=== PATIENT | female | born 1960 | race Caucasian/White ===

== ENCOUNTER 2022-03-24 07:51 | Day surgery (SDC) | payer OTHER, SELFPAY ==
[2022-03-24] VITALS (8 sets, daily range): BP systolic 88–154; BP diastolic 56–93; PULSE 57–76; RESP 16; TEMP 36.2–36.7; O2SAT 95–99; BMI 27.7
--- NOTE | 2022-03-24 | IMM_PTH ---
PATIENT: YULIANA ARREDONDO LOC: EN U#:[id number] AGE/SX: 61/F ROOM: RE03/24/[address]: Dr. Sean Rodriguez MD : 1960 BED: DIS: 03/24/2022 SPEC #: [id number] RECD: 03/24/22 13:07 STATUS: BAKARI ANICETO #: [id number] MANUEL: 03/24/22 00:[address]: Sean Rodriguez DEPT: IMMUNOHISTOCHEMISTRY RECD BY: Brigitte Chambers ENTERED: 03/24/22 13:07 SP TYPE: IMMUNO OTHR DR: GURERERO Pitt Tissues: COLON BIOPSY Procedures: H Pylori (initial) PHYSICIAN & INSTITUTION [place] [id number] SPECIMEN INFORMATION: Tissue Source: A. Antrum biopsy Clinical Info: Positive colorectal cancer screening Specimen Number: [id number] CPT code: 42342 METHODOLOGY: Deparaffinized sections of prefer/formalin-fixed tissue or PAP/DQ stained slides are incubated with monoclonal/polyclonal antibodies/oligonucleotide probes. Localization is made via biotin free immunoperoxidase method. Appropriate controls are performed and reacted as expected. Results on target cell population are indicated in the following table: RESULTS: ANTIBODY / CLONE RESULT Block A H Pylori (polyclonal) positive These tests were developed and their performance characteristics determined by [facility]. They may not have been cleared or approved by the U.S. Food and Drug Administration. The FDA has determined that such clearance or approval is not necessary. The above immunohistochemical/dualISH markers are ordered and reviewed by the Pathologist. INTERPRETATION: A. Antrum, biopsy: Positive for Helicobacter pylori organisms. SJ:juli 03/28/2022
--- NOTE | 2022-03-24 08:12 | PCM.HP.BLA ---
History and Physical Date of Admission: 03/24/22 Visit Reasons:?COLONOSCOPY Chief Complaint: c-scope Paint Supervisor Required: No Is patient in pain?: No Allergies No Known Allergies Allergy (Unverified 03/03/22 08:14) PFSH Surgical History?(Updated 03/03/22 @ 08:10 by Viviana Jefferson) S/P S/P hysterectomy Family History?(Updated 03/03/22 @ 08:10 by Viviana Jefferson) Mother Breast cancerGrandfather Heart disease Social History Smoking Status:? Never smoker alcohol intake:? current HPI HPI HPI: YULIANA ARREDONDO, is a 61 F who presents to the office today for surgical consultation regarding colonoscopy.? The patient is being referred by Christina Pascal PA-C and a written copy of my surgical consult recommendations will return to her.? The patient has had a positive result from a screening Cologuard test I will February 06, 2022.? She has not had a previous colonoscopy.? As of August 18, 2021 BUN was 17 and creatinine 0.73.? Liver function tests were normal.? I do not have a CBC from that time.? Ela good health.? She is not on any chronic medications.? No bright red blood per rectum or melena.? Family history is negative for colon polyps or colon cancer.? She does not take antacids either.? She has not noticed any epigastric pain ROS General General: No weight change, appetite, fatigue, colon cancer, breast cancer or weakness HEENT HEENT: No difficulty swallowing, eye injury, eye surgery, swollen glands or hoarseness Endo Endocrine: No thyroid disease, diabetes mellitus, thyroid cancer, Hair loss, heat intolerance or cold intolerance Skin Skin: No rash or changing moles Breast Breast: No left breast lump, right breast lump, nipple discharge, breast pain, abnormal mammogram, abnormal US or breast enlargement Musc Musculoskeletal: No back problems, arthritis, rheumatoid arthritis, gout or joint pain Cardio Cardiovascular: No murmur, pacemaker, heart disease, atrial fibrillation, high blood pressure, heart attack, heart stent, palpitations, shortness of breat with exertion or chest pain Psych Psychiatric: No depression, anxiety or hearing voices Resp Respiratory: No shortness of breath, No sleep apnea, No cough, No COPD, No asthma, No emphysema and No wheezing Gastro Gastrointestinal: No abdominal pain, No nausea or vomiting, No diarrhea, No constipation, Yes blood in stool, No acid reflux, No hemorrhoids, No ulcers, No gallbladder problem and No black,tarry stools Lopez Hematologic: No blood thinners, No blood disorders, No bleeding, No anemia and No blood clots Neuro Neurologic: No system reviewed and no additional complaints, except as documented, No as per HPI, No abnormal gait, No abnormal hearing, No abnormal movements, No abnormal speech, No behavioral changes, No burning sensations, No confusion, No convulsions, No disequilibrium, No dizziness, No localized weakness, No frequent falls, No headache(s), No lack of coordination, No loss of vision, No memory loss, No numbness, No other visual disturbances, No radicular pain, No restless legs, No sensory deficit, No syncope, No tingling, No tremor(s), No weakness and No other Exam Const General: cooperative, healthy appearing and comfortable [facility] Head: normal to inspection Eyes General: appearance normal, both eyes and all related structures Neck Neck: normal visual inspection Resp Effort & Inspection: normal respiratory effort Auscultation: clear to auscultation bilaterally Cardio Rate: regular rate Rhythm: regular rhythm Musc Cervical Spine: normal cervical lordosis Skin General: no rashes or lesions noted Neuro General: patient alert and patient awake Extrem General: no calf tenderness Psych Appearance: grossly normal Assessment and Plan Assessment and Plan (1) Positive colorectal cancer screening using Cologuard test: ?Status:?Acute ?Plan: I recommended the patient to combine a esophagogastroduodenoscopy with possible biopsy and colonoscopy with possible biopsy or polypectomy.? Patient is aware of the technique, benefit, risk, alternatives.? She has had an opportunity ask and have questions answered.? We will schedule proceed as noted. Copy: IDA Foster M.D., F.A.C.S. I have re-examined the patient. There are no clinical changes since date of exam. Sean Rodriguez M.D., F.A.C.S.
[2022-03-24] MEDS: Lactated Ringers 1,000 ML 15 ML IV (08:17)
--- NOTE | 2022-03-24 08:45 | EGD_PTH ---
PATIENT: YULIANA ARREDONDO LOC: EN U#:[id number] AGE/SX: 61/F ROOM: RE03/24/[address]: Dr. Sean Rodriguez MD : 1960 BED: DIS: 03/24/2022 SPEC #: [id number] RECD: 03/24/22 11:02 STATUS: BAKARI OLIVERAce #: [id number] MANUEL: 03/24/22 08:[address]: Sean Rodriguez DEPT: SURGICAL PATHOLOGY RECD BY: Otilia Conrad ENTERED: 03/24/22 12:10 SP TYPE: EGD BIOPSY OTHR DR: GUERRERO Pitt Tissues: A - Gastric mucous membrane B - Esophagus, NOS Procedures: Special Stain Group II Surgery Specimen Level IV Alcian Blue/PAS (control) HEADER OPERATION: [place] [place] PRE-OP DIAGNOSIS: Positive colorectal cancer screening TISSUE SUBMITTED: A - Antrum biopsy for H. pylori and path, B - Distal esophagus MICROSCOPIC DIAGNOSIS A. Antrum, biopsy: Moderate gastritis. See microscopic description and comment. B. Distal esophagus, biopsy: A fragment of gastroesophageal mucosa with mild chronic inflammation. Intestinal metaplasia (goblet cell metaplasia) not identified. See comment. SJ:juli 03/27/2022 COMMENT A. The results of immunohistochemistry for Helicobacter pylori will be reported separately ([id number]). Alcian blue/PAS stain with matched control is used in the evaluation of the specimen. B. Alcian blue/PAS stain with matched control is used in the evaluation of the specimen. The specimen predominantly consists of squamous mucosa. MICROSCOPIC DESCRIPTION Slides are reviewed. A. The specimen shows fragments of gastric mucosa with chronic inflammatory cell infiltrates in the lamina propria consisting of lymphocytes and plasma cells, consistent with moderate chronic gastritis. Focal intestinal metaplasia (goblet cell metaplasia) is also noted. GROSS DESCRIPTION A - Received in fixative is one container labeled with the patient's name and designated antrum biopsy. The specimen consists of one irregular fragment of light contreras soft tissue that measures 0.3 x 0.3 x 0.1 cm. The specimen is totally submitted in one cassette. B - Received in fixative is one container labeled with the patient's name and designated distal esophagus biopsy. The specimen consists of one irregular fragment of light contreras soft tissue that measures 0.8 x 0.3 x 0.1 cm. The specimen is totally submitted in one cassette. / SJ:rg 03/24/2022 TC:3 CPT: 19886 x2, 11737 x2
--- NOTE | 2022-03-24 09:39 | OP.EGD_ITS ---
Patient Name: Snow Silva Procedure Date: 03/24/2022 8:57 AM Date of : 1960 Age: 61 Procedure: Upper GI endoscopy Indications: Cologuard positive Providers: Sean Rodriguez MD Medicines: See the Anesthesia note for documentation of the administered medications Complications: No immediate complications. Procedure: Pre-Anesthesia Assessment: - Prior to the procedure, a History and Physical was performed, and patient medications and allergies were reviewed. The patient's tolerance of previous anesthesia was also reviewed. The risks and benefits of the procedure and the sedation options and risks were discussed with the patient. All questions were answered, and informed consent was obtained. Prior Anticoagulants: The patient has taken no previous anticoagulant or antiplatelet agents. ASA Grade Assessment: II - A patient with mild systemic disease. After reviewing the risks and benefits, the patient was deemed in satisfactory condition to undergo the procedure. After obtaining informed consent, the endoscope was passed under direct vision. Throughout the procedure, the patient's blood pressure, pulse, and oxygen saturations were monitored continuously. The colonoscope was introduced through the mouth, and advanced to the second part of duodenum. The upper GI endoscopy was accomplished without difficulty. The patient tolerated the procedure well. Scope In: 9:06:21 AM Scope Out: 9:11:30 AM Total Procedure Duration Time 0 hours 5 minutes 9 seconds Findings: Esophagitis with no bleeding was found 39 cm from the incisors. Biopsies were taken with a cold forceps for histology. A small hiatal hernia was present. Diffuse mildly erythematous mucosa without bleeding was found in the gastric antrum. Biopsies were taken with a cold forceps for histology. The examined duodenum was normal. Impression: - Reflux esophagitis. Biopsied. - Small hiatal hernia. - Erythematous mucosa in the antrum. Biopsied. - Normal examined duodenum. Recommendation: - Discharge patient to home. - Resume previous diet. - Continue present medications. - Telephone my office for pathology results in 1 week. Mild gastritis as potential source of cologuard positive Procedure Code(s): --- Professional --- 30301, Esophagogastroduodenoscopy, flexible, transoral; with biopsy, single or multiple Diagnosis Code(s): --- Professional --- K21.0, Gastro-esophageal reflux disease with esophagitis K44.9, Diaphragmatic hernia without obstruction or gangrene K31.89, Other diseases of stomach and duodenum CPT copyright 2017 [employer]. All rights reserved. The codes documented in this report are preliminary and upon hydraulic billet maker review may be revised to meet current compliance requirements. Sean Rodriguez MD 03/24/2022 9:38:48 AM This report has been signed electronically. Number of Addenda: 0 Note Initiated On: 03/24/2022 8:57 AM
--- NOTE | 2022-03-24 09:44 | OP.COLON_ITS ---
Patient Name: Snow Silva Procedure Date: 03/24/2022 9:11 AM Date of : 1960 Age: 61 Procedure: Colonoscopy Indications: Cologuard positive Providers: Sean Rodriguez MD Medicines: See the Anesthesia note for documentation of the administered medications Patient Profile: Last Colonoscopy: none. The patient's first colonoscopy is today. Complications: No immediate complications. Procedure: Pre-Anesthesia Assessment: - Prior to the procedure, a History and Physical was performed, and patient medications and allergies were reviewed. The patient's tolerance of previous anesthesia was also reviewed. The risks and benefits of the procedure and the sedation options and risks were discussed with the patient. All questions were answered, and informed consent was obtained. Prior Anticoagulants: The patient has taken no previous anticoagulant or antiplatelet agents. ASA Grade Assessment: II - A patient with mild systemic disease. After reviewing the risks and benefits, the patient was deemed in satisfactory condition to undergo the procedure. - Prior to the procedure, a History and Physical was performed, and patient medications and allergies were reviewed. The patient's tolerance of previous anesthesia was also reviewed. The risks and benefits of the procedure and the sedation options and risks were discussed with the patient. All questions were answered, and informed consent was obtained. Prior Anticoagulants: The patient has taken no previous anticoagulant or antiplatelet agents. ASA Grade Assessment: II - A patient with mild systemic disease. After reviewing the risks and benefits, the patient was deemed in satisfactory condition to undergo the procedure. After I obtained informed consent, the scope was passed under direct vision. Throughout the procedure, the patient's blood pressure, pulse, and oxygen saturations were monitored continuously. The colonoscope was introduced through the anus and advanced to the cecum, identified by appendiceal orifice and ileocecal valve. The colonoscopy was performed without difficulty. The patient tolerated the procedure well. The quality of the bowel preparation was good. The ileocecal valve and the appendiceal orifice were photographed. Scope In: 9:06:13 AM Scope Withdrawal Time 0 hours 7 minutes 6 seconds Scope Out: 9:31:05 AM Total Procedure Duration Time 0 hours 24 minutes 52 seconds Findings: Hemorrhoids were found on perianal exam. A few diverticula were found in the sigmoid colon. The colon (entire examined portion) was moderately tortuous. Advancing the scope required using manual pressure. The exam was otherwise without abnormality. Impression: - Hemorrhoids found on perianal exam. - Diverticulosis in the sigmoid colon. - Tortuous colon. - The examination was otherwise normal. - No specimens collected. Recommendation: - Discharge patient to home. - Resume previous diet. - Continue present medications. - Repeat colonoscopy in 10 years for screening purposes. Procedure Code(s): --- Professional --- 31723, Colonoscopy, flexible; diagnostic, including collection of specimen(s) by brushing or washing, when performed (separate procedure) Diagnosis Code(s): --- Professional --- K64.9, Unspecified hemorrhoids K57.30, Diverticulosis of large intestine without perforation or abscess without bleeding Q43.8, Other specified congenital malformations of intestine CPT copyright 2017 [employer] [place] [employer]. All rights reserved. The codes documented in this report are preliminary and upon medical biller coder review may be revised to meet current compliance requirements. Sean Rodriguez MD 03/24/2022 9:43:31 AM This report has been signed electronically. Number of Addenda: 0 Note Initiated On: 03/24/2022 9:11 AM
== END 2022-03-24 10:22 | disposition home or self-care (01) ==
LOC: EN 07:53 → AC 07:56
PROVIDERS: PCP Physician Assistant; Referring Provider Physician Assistant; Visit Provider Surgery
PROC: 0DJD8ZZ Inspection of Lower Intestinal Tract, Via Natural or Artificial Opening Endoscopic (ICD-10-PCS; CPT 45378; principal; 2022-03-24 08:40)
DX: K44.9 Diaphragmatic hernia without obstruction or gangrene (principal); K64.9 Unspecified hemorrhoids; K57.30 Diverticulosis of large intestine without perforation or abscess without bleeding; K21.00 Gastro-esophageal reflux disease with esophagitis, without bleeding; K31.89 Other diseases of stomach and duodenum; Q43.8 Other specified congenital malformations of intestine; K29.70 Gastritis, unspecified, without bleeding
CPT/HCPCS: 43239; 45378; 88305; 88313; 88342; J7120; J2405

== ENCOUNTER → 2022-07-06 | Outpatient (CLI) | payer OTHER, SELFPAY ==
[2022-07-06 10:45] LABS: Absolute Lymphocyte Count 0.66 X10^3/uL (0.83-4.51); Absolute Neutrophil Count 4.2 X10^3/uL (2.0-7.7); Basophil# 0.03 X10^3/uL; Basophil% 0.5 % (0-1); Eosinophil# 0.08 X10^3/uL; Eosinophils% 1.5 % (0-5); Hematocrit 45.4 % (37-47); Hemoglobin 14.2 g/dL (12.0-15.0); Lymphocyte # 0.66 X10^3/ul (0.83-4.51); Mean Corp Hgb Conc 31.3 g/dL (32-36); Mean Corpuscular Hgb 31.8 pg (27.0-32.0); Mean Corpuscular Volume 101.6 fL (81-99); Mean Platelet Vol. 10.4 fl (6.2-12.0); Monocyte# 0.53 X10^3/uL; Monocyte% 9.6 % (0-10); NRBC Flagged by Analyzer 0 % (0-5); Neutrophil # 4.18 X10^3/uL (2.7-7.7); Neutrophil % 75.9 % (47-70); Platelet Count 338 K/mm3 (150-450); RBC Distribution Width CV 11.9 % (11.6-14.6); RBC Distribution Width SD 45.3 fl (35.1-43.9); Red Blood Count 4.47 M/mm3 (4.2-5.4); White Blood Count 5.5 K/mm3 (4.4-11.0)
[2022-07-06 11:15] LABS: Vitamin D,25 Hydroxy 15.2 ng/mL
[2022-07-06 11:38] LABS: BUN 10 mg/dL (7-18); Creatinine, Serum 0.74 mg/dL (0.55-1.02); Glucose 79 mg/dL (74-106)
[2022-07-06 11:39] LABS: ALB/GLOB Ratio 1.2 RATIO (0.9-2.4); AST(SGOT) 21 U/L (15-37); Alanine Aminotransfer ALT/SGPT 36 U/L (13-56); Albumin, Serum 3.9 g/dL (3.2-5.0); Alkaline Phosphatase 92 U/L (45-117); Anion Gap 6 (5-15); BUN/Creat Ratio 13.5 RATIO (10-20); Calcium,Total 9.4 mg/dL (8.5-10.1); Chloride 108 mmol/L (98-107); EST Glomerular Filtration Rate 84 mL/min (>60); Est Glom Filt Rate - Afr Amer 101 mL/min (>60); Ferritin 36 ng/mL (8-252); Globulin 3.2 g/dL (2.2-4.2); Potassium 4.2 mmol/L (3.5-5.1); Protein, Total 7.1 g/dL (6.4-8.2); Sodium Level 142 mmol/L (136-145); T4 Free Direct 0.88 ng/dL (0.76-1.46); Thyroid Stim Hormone (TSH) 0.44 uIU/mL (0.358-3.74)
[2022-07-07 10:30] LABS: Thyroid Peroxidase AB 11 IU/mL (0-34)
== END | disposition home or self-care (01) ==
PROVIDERS: PCP Physician Assistant; Referring Provider Internal Medicine Endocrinology, Diabetes & Metabolism; Visit Provider Internal Medicine Endocrinology, Diabetes & Metabolism
DX: E55.9 Vitamin D deficiency, unspecified (principal); E04.2 Nontoxic multinodular goiter
CPT/HCPCS: 36415; 80053; 82306; 82728; 84439; 84443; 85025; 86376

== ENCOUNTER → 2022-07-14 | Outpatient (CLI) | payer OTHER, SELFPAY ==
--- NOTE | 2022-07-14 18:19 | US_ITS ---
STUDY: THYROID ULTRASOUND REASON FOR EXAM: Female, 62 years old. F./U NODULES TECHNIQUE: Ultrasound evaluation of the thyroid was performed with real-time and static heard-scale imaging. COMPARISON: None. FINDINGS: RIGHT LOBE: The right lobe of the thyroid gland measures 7.6 x 5.5 x 3.5 cm. There is a heterogeneous echotexture. Nodule 1:57 x 59 x 35 mm mostly solid isoechoic wider than tall smoothly marginated nodule with no echogenic foci (TR 3) in the mid right lobe for which ultrasound-guided biopsy is recommended if never performed. Nodule 2:21 x 17 x 14 mm solid isoechoic wider than tall smoothly marginated nodule with no echogenic foci (TR 3) in the posterior right lobe and follow-up ultrasound is recommended in one year. LEFT LOBE: The left lobe of the thyroid gland measures 4.4 x 1.6 x 1.6 cm. There is a heterogeneous echotexture. Nodule 3:9 x 8 x 6 mm solid isoechoic wider than tall ill-defined marginated nodule with no echogenic foci (TR 3) in the mid left lobe consistent with an adenoma. Nodule 4:12 x 8 x 5 mm mixed cystic and solid isoechoic wider than tall ill-defined marginated nodule with no echogenic foci (TR 2) in the mid left lobe consistent with an adenoma. Nodule 5:10 x 6 x 5 mm mixed cystic and solid isoechoic wider than tall smoothly marginated nodule with no echogenic foci (TR 2) in the lateral left lobe consistent with an adenoma. ISTHMUS: The isthmus measures 3 mm thick. . The regional lymph nodes are normal. US/Thyroid IMPRESSION: Thyroiditis with multiple nodules including a large dominant nodule the right lobe for which ultrasound-guided biopsy is recommended. Follow-up ultrasound is recommended in one year. Electronically Signed: Jama Cartagena MD at 19:16 EST ,
== END | disposition home or self-care (01) ==
LOC: US 18:17
PROVIDERS: PCP Physician Assistant; Visit Provider Internal Medicine Endocrinology, Diabetes & Metabolism
DX: E06.9 Thyroiditis, unspecified (principal); E04.2 Nontoxic multinodular goiter
CPT/HCPCS: 76536

== ENCOUNTER → 2022-08-03 | Outpatient (CLI) | payer OTHER, SELFPAY ==
--- NOTE | 2022-08-03 09:22 | BD_ITS ---
STUDY: DUAL ENERGY X-RAY ABSORPTIOMETRY / DXA REASON FOR EXAM: Female, 62 years old. Screen TECHNIQUE: Bone Mineral Density (BMD) measurements of lumbar spine and bilateral hips were obtained. COMPARISON: None. FINDINGS: Lumbar Spine (L1-L4): g/cm2 (1.248) / T-score (1.8) / Z-score (3.5) Findings are suggestive of normal bone density with a low fracture risk. Left Femur Total: g/cm2 (0.987) / T-score (0.4) / Z-score (1.5) Left Femoral Neck: g/cm2 (0.884) / T-score (0.3) / Z-score (1.7) Right Femur Total: g/cm2 (0.986) / T-score (0.4) / Z-score (1.5) Right Femoral Neck: g/cm2 (0.880) / T-score (0.3) / Z-score (1.7) BD/Dexa Bone Density Study IMPRESSION: The patient is considered normal as outlined below according to World [employer] Organization (WHO) criteria with a low fracture risk. Reference Information: The T-score is the number of standard deviations above or below the standard which is normal for young adults at their peak bone mineral density. The World Health Organization (WHO) interprets the T-scores as follows: Above -1 Normal bone density Between -1 and -2.5 Osteopenia Equal to / or below -2.5 Osteoporosis As a practical clinical guideline, osteopenia may be graded as follows: Mild -1 through -1.5 Moderate -1.6 through -2.0 Severe -2.1 through -2.4 The Z-score is the number of standard deviations above or below age-matched controls. A Z-score of less than -1.5 would be considered abnormal. References: 1. NIH Osteoporosis and Related Bone Diseases www osteo.org 2. International Society for Clinical Densitometry www iscd.org 3. National Osteoporosis Foundation www nof.org Electronically Signed: Carter Gaitan MD at 15:37 EST ,
== END | disposition home or self-care (01) ==
LOC: OPBD 09:14
PROVIDERS: PCP Physician Assistant; Visit Provider Internal Medicine Endocrinology, Diabetes & Metabolism
DX: Z78.0 Asymptomatic menopausal state (principal)
CPT/HCPCS: 77080